=== PATIENT | male | born 1940 | race Caucasian/White ===

== ENCOUNTER 2019-10-31 14:04 | Emergency (ER) | payer MEDICARE ==
[~2019-10-31] VITALS: Ht 180.3 cm; Wt 90.7 kg
[~2019-10-31 14:04] MED LIST: ASPIRIN EC325 MG PO; LISINOPRIL20 MG PO; OMEPRAZOLE20 MG PO; TENORMIN50 MG PO
== END 2019-10-31 15:57 | disposition home or self-care (01) ==
LOC: ED 14:04
DX: S16.1XXA Strain of muscle, fascia and tendon at neck level, initial encounter (principal); I25.2 Old myocardial infarction; Z87.891 Personal history of nicotine dependence; Z88.2 Allergy status to sulfonamides; Z79.899 Other long term (current) drug therapy; Z79.82 Long term (current) use of aspirin; X58.XXXA Exposure to other specified factors, initial encounter
CPT/HCPCS: 84484; 99283

== ENCOUNTER 2020-08-21 07:49 | Day surgery (SDC) | payer OTHER ==
[~2020-08-21] VITALS: Ht 180.3 cm; Wt 98.2 kg
--- NOTE | ~2020-08-21 | OR ---
[facility] [address] [place], [place] [address] Draft DATE OF OPERATION: 08/21/2020 SURGEON: Francis Araujo MD PREOPERATIVE DIAGNOSIS: Septal deformity, inferior turbinate hypertrophy. POSTOPERATIVE DIAGNOSIS: Septal deformity, inferior turbinate hypertrophy. PROCEDURES: Septoplasty and cautery, bilateral inferior turbinates. ANESTHESIA: General, LMA; SHOE COBBLER, Frederick. PREOPERATIVE HISTORY: Kirby is a 80-year-old male with a long history of nasal congestion, rhinorrhea, unresponsive to appropriate medications. He was taken to the operating room for the above-mentioned procedures. PROCEDURE AND FINDINGS: After informed consent, the patient was taken to the operating room, placed in the supine position, where general LMA anesthesia was induced. The patient and procedure were verified. The patient received preoperative intravenous Ancef and intranasal oxymetazoline. Headlight speculum exam of the nasal cavity showed a significant septal deformity on the left side, a large spur and shelf extending posteriorly. Septal mucosa was injected with 1% lidocaine with epi. Septal mucosa was elevated off the bony cartilage spur with a [place] elevator and the deformity was removed with the [place]. The airway was markedly improved in this manner. The septum in addition medialized with the nasal speculum. The inferior turbinates were then cauterized with a long handle needle point cautery starting on the right side. Multiple transmucosal passes on the inferior turbinate on the medial and inferior surface extending anteriorly all the way back posteriorly excellent shrinkage, decongestion of the turbinate was obtained. Same procedure on the left inferior turbinate. Minimal bleeding, stopped afterwards. Packing was then placed, one piece of Merocel each side trimmed, coated with Neosporin, tied anteriorly over string. The pharynx was suctioned clear of blood secretions. The patient was then awakened, extubated, and transported to the recovery room in good condition. No PATIENT NAME: KIRBY STARKS OPERATIVE REPORT DATE OF : 42 REPORT #: [id number] PHYSICIAN: FRANCIS ARAUJO MD PCP: MELANIE DELCID REPORT IS CONFIDENTIAL AND NOT TO BE RELEASED WITHOUT AUTHORIZATION [facility] [address] [place] [id number] Draft complications. BLOOD LOSS: Minimal. SPECIMEN: No specimens. DRAINS: No drains. PACKING: One piece of Merocel in each nostril. Francis Araujo MD GC/MODL /[id number] Copies: ~ PATIENT NAME: KIRBY STARKS OPERATIVE REPORT DATE OF : 42 REPORT #: [id number] PHYSICIAN: FRANCIS ARAUJO MD PCP: MELANIE DELCID REPORT IS CONFIDENTIAL AND NOT TO BE RELEASED WITHOUT AUTHORIZATION
[~2020-08-21 07:49] MED LIST changes: +CRESTOR40 MG NG; +HYDROCHLOROTH12.5 M1 PO; +TIMOPTIC5 ML OPTH
--- NOTE | 2020-08-21 11:43 | NUR ---
08/21/20 1143 Madelyn Walton 1110 PT ARRIVED IN PACU NON RESPONSIVE TO NOXIOUS STIMULI. CHIN LIFT HELD BY RN. 1120 PT REACTIVE. REPOSITIONED IN BED. 1125 C/O SOB. INSPIRATORY/EXP WHEEZING NOTED. NEW ORDERS RECEIVED. 1134 ALBUTEROL UNIT DOSE NEB GIVEN. 1140 PT STATES "I FEEL ALITTLE BETTER."
--- NOTE | 2020-08-21 12:12 | NUR ---
1150: PATIENT BACK IN DAY SURGERY ROOM FROM PACU. RATES PAIN 3-4/10. ICE WATER PLACED AT BEDSIDE. PATIENT GIVEN APPLE SAUCE TO EAT. VS CHECKED. IV SITE WNL. MOUSTACHE DRESSING IN PLACE WITH SMALL AMOUNT OF RED DRAINAGE. NASAL PACKING ALSO IN PLACE. SCDs ON. CALL LIGHT WITHIN REACH.
--- NOTE | 2020-08-21 12:20 | NUR ---
1205: PATIENT TOLERATED APPLESAUCE AND WATER. MEDICATED FOR PAIN WITH 1 TAB OF HYDROCODONE. CALL LIGHT WITHIN REACH.
[2020-08-21] MEDS ORDERED: HYDROCODON-ACE1 EA10 PO (12:39)
[2020-08-21] MEDS ORDERED: CEPHALEXIN500 M1 PO (12:39)
--- NOTE | 2020-08-21 12:52 | NUR ---
VS CHECKED. PATIENT GIVEN SECOND TABLET OF HYDROCODONE PER HIS REQUEST. CONTINUES TO RATE PAIN 4/10. MOUSTACHE DRESSING WITH SMALL AMOUNT OF RED DRAINAGE. SCDs ON. CALL LIGHT WITHIN REACH. PATIENT ALSO GIVEN SECOND APPLESAUCE PER REQUEST.
--- NOTE | 2020-08-21 14:00 | NUR ---
1325: PATIENT STATES PAIN DOWN TO 1/10. STATES READY TO GO HOME. PATIENT GIVEN DISCHARGE INSTRUCTIONS. PATIENT ASSISTED OOB. PATIENT GETTING DRESSED. 1345: MOUSTACHE DRESSING CHANGED. PATIENT EDUCATED ON HOW TO CHANGE MOUSTACHE DRESSING AT HOME. IV DC'D WNL. TIP INTACT. DRESSING APPLIED. PATIENT DISCHARGED TO HOME VIA WHEELCHAIR WITH DAUGHTER.
== END 2020-08-21 13:45 | disposition home or self-care (01) ==
LOC: OPS 07:49 → DS 07:49 → OPS 09:30 → DS 09:30 → OPS 10:00
PROVIDERS: ATTEND Otolaryngology
PROC: 095L7ZZ Destruction of Nasal Turbinate, Via Natural or Artificial Opening (ICD-10-PCS; principal; 2020-08-21 10:00)
PROC: 09BM8ZZ Excision of Nasal Septum, Via Natural or Artificial Opening Endoscopic (ICD-10-PCS; 2020-08-21 10:00)
DX: J34.2 Deviated nasal septum (principal); J34.3 Hypertrophy of nasal turbinates; I10 Essential (primary) hypertension; E78.00 Pure hypercholesterolemia, unspecified; I25.2 Old myocardial infarction; I25.10 Atherosclerotic heart disease of native coronary artery without angina pectoris; Z98.61 Coronary angioplasty status; Z79.82 Long term (current) use of aspirin; Z88.2 Allergy status to sulfonamides; Z88.8 Allergy status to other drugs, medicaments and biological substances
CPT/HCPCS: J0690; J1100; J2001; J2405; J2704; J3010; J7121

== ENCOUNTER 2021-06-26 16:53 | Emergency (ER) | payer MEDICARE ==
[~2021-06-26] VITALS: Ht 180.3 cm; Wt 98.0 kg
[~2021-06-26 16:53] MED LIST changes: +CEPHALEXIN500 M1 PO; +HYDROCODON-ACE1 EA10 PO
== END 2021-06-26 19:39 | disposition home or self-care (01) ==
LOC: ED 16:53
DX: R07.89 Other chest pain (principal); I25.2 Old myocardial infarction; Z87.891 Personal history of nicotine dependence; Z88.2 Allergy status to sulfonamides; Z79.82 Long term (current) use of aspirin; Z79.899 Other long term (current) drug therapy
CPT/HCPCS: 36415; 84484; 85025; 93005; 93010; 99285-25